=== PATIENT | female | born 1955 | race Native Hawaiian/Other Pacific Islander ===

== ENCOUNTER 2022-08-10 12:32 | Outpatient (CLI) | payer OTHER | END 2022-08-10 19:21 | disposition home or self-care (01) | LOC: RAD 12:32 | PROVIDERS: ATTEND Nurse Practitioner Family | DX: E55.9 Vitamin D deficiency, unspecified (principal); E56.8 Deficiency of other vitamins; H16.223 Keratoconjunctivitis sicca, not specified as Sjogren's, bilateral; M06.4 Inflammatory polyarthropathy; R76.0 Raised antibody titer ==